=== PATIENT | female | born 2005 | race Caucasian/White ===

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

== ENCOUNTER 2024-05-28 00:05 | Emergency (ER) | payer OTHER ==
[2024-05-28] MEDS: Ondansetron 4 MG/2 ML SDV IVPUSH ONE (00:50)
[2024-05-28] MEDS: Sodium Chloride 0.9% 10 ML Syringe FLUSH PRN (00:50)
[2024-05-28 01:09] LABS: BASOPHILS PERCENT AUTO 0.1 % (0.2-1.5); EOSINOPHILS ABSOLUTE AUTO 0.2 x10-3/uL (0.0-0.8); EOSINOPHILS PERCENT AUTO 2.3 % (0.6-8.1); HEMATOCRIT 35.7 % (34.2-48.2); HEMOGLOBIN 12.3 g/dL (11.4-15.5); LYMPHOCYTES ABSOLUTE AUTO 1.7 x10-3/uL (1.0-4.4); LYMPHOCYTES PERCENT AUTO 20.4 % (18.4-52.1); MEAN CORPUSCULAR HEMOGLOBIN 31.5 pg (23.9-33.9); MEAN CORPUSCULAR HGB CONC 34.5 g/dL (31.9-34.8); MEAN CORPUSCULAR VOLUME 91.2 fL (76.7-100.5); MEAN PLATELET VOLUME 8.3 fL (7.1-12.4); MONOCYTES ABSOLUTE AUTO 0.4 x10-3/uL (0.3-1.0); MONOCYTES PERCENT AUTO 4.6 % (4.4-15.7); NEUTROPHILS ABSOLUTE AUTO 5.9 x10-3/uL (1.5-6.3); NEUTROPHILS PERCENT AUTO 72.6 % (30.8-76.2); PLATELET COUNT,PLT 260 x10(3)uL (151-488); RED BLOOD CELL COUNT 3.91 x10(6)uL (3.60-5.20); RED CELL DISTRIBUTION WIDTH 13.3 % (12.3-16.5); WHITE BLOOD CELL COUNT,WBC 8.2 x10-3/uL (3.0-10.3)
[2024-05-28 01:18] LABS: BLOOD UREA NITROGEN,BUN 15 mg/dL (7-18); CARBON DIOXIDE,CO2 27 mmol/L (21-32); CHLORIDE,CL 103 mmol/L (100-110); ESTIMATED GFR 83 mL/min (>60); GLUCOSE RANDOM 137 mg/dL (80-116); POTASSIUM,K 3.7 mmol/L (3.5-5.3); SODIUM,NA 141 mmol/L (135-145)
[2024-05-28 01:27] LABS: BASE EXCESS VENOUS,POC 1 mmol/L (-2 - 3+); PCO2 VENOUS,POC 41 mmHg (41-51)
[2024-05-28 01:32] LABS: A/G RATIO 1.1; ALANINE AMINOTRANSFERASE,ALT 22 U/L (12-36); ALBUMIN 3.3 g/dL (3.5-5.2); ALKALINE PHOSPHATASE 42 IU/L (56-112); ASPARTATE AMNIOTRANSFERASE,AST 16 IU/L (5-25); BILIRUBIN TOTAL 0.4 mg/dL (0.1-1.3); PROTEIN TOTAL,TP 6.3 g/dL (6.0-8.0)
[2024-05-28 03:33] LABS: AMPHETAMINES SCREEN, URINE NEGATIVE (NEGATIVE); BARBITURATE SCREEN,URINE NEGATIVE (NEGATIVE); BENZODIAZEPINES SCREEN,URINE NEGATIVE (NEGATIVE); BUPRENORPHINE SCREEN,URINE NEGATIVE (NEGATIVE); METHADONE SCREEN, URINE NEGATIVE (NEGATIVE); METHAMPHETAMINE SCREEN, URINE NEGATIVE (NEGATIVE); OXYCODONE SCREEN,URINE NEGATIVE (NEGATIVE); THC SCREEN,URINE POSITIVE (NEGATIVE)
== END 2024-05-28 03:55 | disposition home or self-care (01) ==
LOC: FB.ED 00:05
DX: T40.411A Poisoning by fentanyl or fentanyl analogs, accidental (unintentional), initial encounter (principal); F11.929 Opioid use, unspecified with intoxication, unspecified; Z88.2 Allergy status to sulfonamides; Z79.899 Other long term (current) drug therapy
CPT/HCPCS: 36415; 80053; 80143; 80307; 84484; 85025; 93005; 93010; 96374; 99284; J2405